=== PATIENT | male | born 1985 | race Caucasian/White ===

== ENCOUNTER 2020-04-24 19:22 | Emergency (ER) | payer OTHER, SELFPAY ==
--- NOTE | ~2020-04-24 | CT_ITS ---
EXAMINATION: CT abdomen pelvis wo con DATE: 04/24/2020 19:55 INDICATION: Right flank pain TECHNIQUE: Computed tomography (CT) of the abdomen and pelvis was performed without intravenous contr ast. The dose-length product (DLP) was 1264.60 mGy-cm. Automated exposure control and iterative recon struction technique were employed. COMPARISON: None FINDINGS: The lung bases are clear. The heart size is normal. The liver, spleen, pancreas, gallbladde r, and adrenal glands are normal. Nonobstructing stones of the left kidney measure up to 2 mm. There are at least five right kidney stones which measure up to 7 mm. No stones are identified in the urete rs or bladder. There is no hydronephrosis or hydroureter. No pathologically enlarged abdominal or pel rupal lymph nodes are identified. There is no free intraperitoneal gas or evidence of bowel obstruction . The appendix is normal. There is mild lumbar spondylosis. There is a small fat-containing umbilical hernia. IMPRESSION: 1. Bilateral nonobstructing nephrolithiasis. No stones in the ureters or bladder. No hydronephrosis o r hydroureter. Reviewed, dictated and finalized at location A. [employer] IMPRESSION: 1. Bilateral nonobstructing nephrolithiasis. No stones in the ureters or bladde r. No hydronephrosis or hydroureter.
[2020-04-24 19:31] VITALS: BP 144/83; PULSE 84; RESP 18; TEMP 36.7; O2SAT 95
[2020-04-24] MEDS: HYDROmorphone HCL INJ (*CRX) 1 MG/ML SYR 0.5 MG IV PUSH (19:50)
[2020-04-24 19:52] LABS: Basophils Percent Auto 0.5 % (0.2-1.2); Eosinophils Absolute Auto 0.2 K/mm3 (0-0.3); Eosinophils Percent Auto 2.8 % (0-4.4); Hematocrit 42.9 % (42.0-52.0); Hemoglobin 14.1 g/dL (14.0-18.0); Immature Granulocyte Absolute 0.01 K/mm3 (0.00-0.031); Immature Granulocyte Percent A 0.2 % (0-0.5); Lymphocytes Absolute Auto 2.92 K/mm3 (0.9-3.2); Lymphocytes Percent Auto 48.7 % (18.3-44.2); Mean Corpuscular HGB Conc 32.9 g/dl (32-36); Mean Corpuscular Volume 85.1 fl (80-100); Mean Platelet Volume 10.3 fl (7.4-10.4); Monocytes Absolute Auto 0.4 K/mm3 (0.1-0.6); Monocytes Percent Auto 6.5 % (2.6-8.5); Neutrophils Absolute Auto 2.5 K/mm3 (1.3-6.7); Neutrophils Percent Auto 41.3 % (45.5-73.1); Platelet Count Result 192 k/mm3 (150-375); Red Blood Count 5.04 M/mm3 (4.6-6.20); Red Cell Distribution Width 13.6 % (11.5-14.5)
--- NOTE | 2020-04-24 19:55 | ED.GENADULT ---
HPI - General Adult General Chief complaint: Back Pain/Injury Stated complaint: R Calf pain, Kidney stone Time Seen by Provider: 04/24/20 19:28 Source: patient Mode of arrival: ambulatory Limitations: no limitations History of Present Illness HPI narrative: Patient presents with chief complaint of right flank pain that is radiating into his groin over the past 6 hours. Patient states he has not had some bloody discoloration to his urine. Patient reports that he has had a kidney stone a month ago. He states that he has been treated for hyperparathyroidism but he still suffers from frequent kidney stones. Patient denies fever, chills, vomiting, diarrhea, chest pain or shortness of breath. Patient also reports that over the past month he has had some irritation to the more distal portion of his right posterior leg. Patient does not have any pain in the calf or thigh. Related Data Allergies Allergy/AdvReac Type Severity Reaction Status Date / Time morphine Allergy Other Verified 04/24/20 19:25 Review of Systems Review of Systems: Narrative: CONSTITUTIONAL: Denies fever, chills, or sweats. EYES: Denies visual changes, redness, or discharge. ENT: Denies rhinorrhea, congestion, sore throat, or otalgia. CARDIOVASCULAR: Denies chest pain, palpitations, or edema. RESPIRATORY: Denies cough or dyspnea. GASTROINTESTINAL: Reports right flank pain Denies abdominal pain, vomiting, or diarrhea. GENITOURINARY: Denies dysuria or hematuria. SKIN: Denies rash or itching. MUSCULOSKELETAL: right achilles pain Denies back pain, joint pain, or myalgia. NEUROLOGIC: Denies headache, numbness, dizziness, or weakness. PSYCHIATRIC: Denies anxiety or depression. Exam Narrative: Exam Narrative: GENERAL: Well-nourished.Appears uncomfortable. HEAD: Normocephalic, atraumatic. EYES: PERRLA and EOMI. NECK: Supple. No adenopathy or masses. No vertebral tenderness or loss of ROM. CHEST: Clear to auscultation. No respiratory distress. No wheezes rales or rhonchi HEART: Regular rate and rhythm. Normal peripheral pulses. ABDOMEN: Right CVA tenderness. Soft, tender to right lower abdomen. nondistended, normal active bowel sounds. No bruises noted. EXTREMITIES: No right calf pain or thigh pain. tenderness with palpation of right achilles- no drop foot. No edema. SKIN: Warm, dry, no rash. NEURO: No focal deficits. Alert and oriented x3. PSYCH: Normal mood and affect. Course Vital Signs Vital signs: Vital Signs Temperature 98.1 F 04/24/20 19:31 Pulse Rate 84 04/24/20 19:31 Respiratory Rate 18 04/24/20 19:31 Blood Pressure 144/83 H 04/24/20 19:31 Pulse Oximetry 95 04/24/20 19:31 Temperature 98.1 F 04/24/20 19:31 Pulse Rate 84 04/24/20 19:31 Respiratory Rate 18 04/24/20 19:31 Blood Pressure 144/83 H 04/24/20 19:31 Pulse Oximetry 95 04/24/20 19:31 Medical Decision Making MDM Narrative Medical decision making narrative: Patient states he will be receiving a ride home. CT is negative for acute findings. Patient has no stones in his ureters or bladder. There is no signs of hydronephrosis or hydroureter. There is some delay in his urine. Patient instructed to follow-up with his urologist. Patient will be discharged home with cyclobenzaprine and naproxen for discomfort. Patient is instructed to follow-up with his urologist or from investigation into his symptoms. Vital Signs Vital Signs: Vital Signs Temperature 98.1 F 04/24/20 19:31 Pulse Rate 84 04/24/20 19:31 Respiratory Rate 18 04/24/20 19:31 Blood Pressure 144/83 H 04/24/20 19:31 Pulse Oximetry 95 04/24/20 19:31 Temperature 98.1 F 04/24/20 19:31 Pulse Rate 84 04/24/20 19:31 Respiratory Rate 18 04/24/20 19:31 Blood Pressure 144/83 H 04/24/20 19:31 Pulse Oximetry 95 04/24/20 19:31 Lab Data Result diagrams: 04/24/20 19:41 04/24/20 19:41 Labs: Lab Results 04/24/20 04/24/20 04/24/20 Range/Units
[2020-04-24 19:58] LABS: Add Urine Microscopic? YES; Appearance Urine Clear (Clear); Bilirubin Urine Negative (Negative); Blood Urine 3+ (Negative); Color Urine Straw (Yellow); Glucose Urine UA Negative (Negative); Ketones Urine Negative (Negative); Leukocyte Esterase Ur Negative LEU/UL (Negative); Mucus Urine Rare /lpf; Nitrate Urine Negative (Negative); Protein Urine 1+ mg/dL (Negative); RBC Urine >75 /hpf (0-2); Specific Grav Ur 1.027 (1.001-1.035); Urobilinogen Urine Negative mg/dL (<2.0); WBC Urine 0-3 /hpf
[2020-04-24 20:09] LABS: Anion Gap 10 mmol/L (8-16); Blood Urea Nitrogen 22 mg/dL (9-20); Calcium 8.2 mg/dL (8.4-10.2); Carbon Dioxide 24 mmol/L (22-30); Chloride 106 mmol/L (98-107); Estimated CRCL calculation 104 ml/min; Estimated Glomerular Filt Rate > 60; Glucose 104 mg/dL (75-110); Potassium 4.2 mmol/L (3.4-5.0); Sodium 140 mmol/L (137-145)
[2020-04-24] MEDS: SODIUM CHLORIDE 0.9% IV 1,000 ML 999 ML IV CONT (20:49)
[2020-04-24] MEDS: KETOROLAC 15 MG/ML VIAL (*BKC) IV PUSH (20:49)
[2020-04-24 21:51] VITALS: BP 135/75; PULSE 78; RESP 18; O2SAT 99
== END 2020-04-24 21:52 | disposition home or self-care (01) ==
PROVIDERS: Emergency Provider Emergency Medicine
DX: R31.9 Hematuria, unspecified (principal); M76.61 Achilles tendinitis, right leg
CPT/HCPCS: 36415; 74176; 80048; 81001; 85025; 96361; 96374; 96375; 99284; J1170; J1885; J7030

== ENCOUNTER 2021-08-07 17:01 | Emergency (ER) | payer OTHER, SELFPAY ==
--- NOTE | 2021-08-07 17:20 | ED.SOB ---
HPI - SOB/Dyspnea General Chief Complaint: Upper Respiratory Infection Stated Complaint: bodyache,sorethroat,cough Time Seen by Provider: 08/07/21 17:08 Source: patient Mode of arrival: ambulatory Limitations: no limitations History of Present Illness HPI Narrative: Mr. Oshea is a 35-year-old male patient presenting to the clinic today with complaints of midsternal chest pain, shortness of breath, cough, body aches, fever and dizziness. Her symptoms began approximately 18 hours ago. States that his chest pain just started maybe an hour or so ago with worsening of shortness of breath. He has a history of a PE approximately 5 years ago. He is not currently taking any anticoagulants. Rates pain a 7 out of 10 to the center of his chest that worsens when he coughs. He reports he took an at home Covid test and it was positive today. Is wanting to be seen for antiviral treatment. MD elicited complaint: shortness of breath, cough and chest pain Related Data Allergies Allergy/AdvReac Type Severity Reaction Status Date / Time morphine Allergy Other Verified 04/24/20 19:25 Review of Systems Review of Systems: Pertinent positives per HPI. Patient denies any rash, visual changes, dizziness, cough, runny nose, sore throat, shortness of breath, chest pain, palpitations, nausea, vomiting, diarrhea, constipation, abdominal pain, or any urinary issues. PMFSH Comments At the time of my signature, I reviewed and agree with the nursing past medical, surgical, social, and family history. There is no relevant family history pertinent to the patient complaint. Exam Narrative: General: Well-developed, obese, lethargic Head: Normocephalic, atraumatic Eyes: Pupils equally round and reactive to light bilaterally, EOM intact, sclera and conjunctive clear, no discharge, lids normal Ears: TMs intact and clear, ear canals clear, no drainage, grossly hearing normal. Nose: Nares patent, clear discharge, mild inflammation, no sinus tenderness. Mouth: Oropharynx without lesions or masses, good dentition, MMM. Neck: Supple, trachea midline, no enlargement of anterior or posterior cervical nodes, no thyroid masses or goiter palpable. Cardio: Regular rate and rhythm, s1 and s2 normal, no murmur appreciated. Resp: Clear to auscultation bilaterally anteriorly, no rhonchi, rales, wheezing or rubs. SPO2 97 to 98% on room air Course Course Emergency Course: Portions of this record may have been created with voice recognition software. Level of Care: Express Care Visit Vital Signs Vital signs: Vital signs reviewed Transfer Transfered to: [facility]: [facility] Transfer rationale: Covid positive-reports shortness of breath and midsternal chest pain a 7 out of 10 -rule out acute coronary syndrome, SARS, or PE Accepting physician: Dr. Marco Barton Transfer comments: Patient transferred via ALS to [facility] MDM - SOB/Dyspnea MDM Narrative Medical decision making narrative: At the time of assessment in the triage room patient is lethargic, increased work of breathing, reporting midsternal chest pain a 7 out of 10 that sharp. Reports that this pain is just like the pain he had when he had his pulmonary embolism 5 years ago. Covid testing was positive at home. Symptoms started approximately 18 hours ago. Patient had near syncopal episode when standing up to go from triage to an exam room. Patient was then transported to [facility] room 1 and EKG was obtained. EKG showed sinus rhythm with a heart rate of 93 bpm without ectopy. Patient diaphoretic, lethargic, and is having increased work to breathe. EMS was notified and risk and benefits were explained to patient regarding transfer to emergency room. Patient agreed to be transferred to the emergency room. Dr. Marco Barton at [facility] accepted the patient. Differential Diagnosis Differential diagnosis: Likely other (Acute STEMI, acute coronary syndrome, sepsis, SARS/Covid, pulmonary embolism) ECG Data E
[2021-08-07 17:22] VITALS: BP 145/95; PULSE 97; RESP 18; TEMP 37.1; O2SAT 98
--- NOTE | 2021-08-07 17:26 | PC.NURSE ---
EKG completed report called to Clare BOND at [facility]
--- NOTE | 2021-08-07 17:29 | PC.NURSE ---
Report to [facility] care transfered
--- NOTE | 2021-08-07 17:34 | ECG_ITS ---
Measurements Intervals [place] Rate: 93 P: 48 IL: 164 QRS: 27 QRSD: 84 T: 44 QT: 334 QTc: 415 Interpretive Statements SINUS RHYTHM NORMAL ECG NO PREVIOUS ECG AVAILABLE FOR COMPARISON Electronically Signed On 08-08-2021 15:35:39 CDT by Alexis Butcher M.D.
== END 2021-08-07 17:37 | disposition short-term general hospital (02) ==
PROVIDERS: Emergency Provider Nurse Practitioner Family
DX: U07.1 COVID-19 (principal); R06.02 Shortness of breath; R07.9 Chest pain, unspecified; E05.90 Thyrotoxicosis, unspecified without thyrotoxic crisis or storm
CPT/HCPCS: 87426; 93005; 99215; C9803; G0463

== ENCOUNTER 2021-08-07 17:49 | Emergency (ER) | payer OTHER, SELFPAY ==
--- NOTE | ~2021-08-07 | XR_ITS ---
XR chest 1V portable DATE: 08/07/2021 18:02 INDICATION: Chest pain, shortness of breath, lethargy TECHNIQUE: Portable AP chest on 08/07/2021 at 29 hours COMPARISON: None FINDINGS: Heart size appears normal. Mild infiltrate or atelectasis is suggested in the lower lung zones; otherwise no pulmonary infiltrat e or consolidation, pleural effusion or pulmonary vascular congestion or pneumothorax is detected IMPRESSION: Suggestion of mild infiltrate or atelectasis in the lower lung zones Reviewed, dictated and finalized at location A. IMPRESSION: Suggestion of mild infiltrate or atelectasis in the lower lung zone s
--- NOTE | ~2021-08-07 | CT_ITS ---
EXAMINATION: CTA chest PE protocol DATE: 08/07/2021 19:29 INDICATION: Chest pain. History of pulmonary embolism TECHNIQUE: Computed tomography angiography (CTA) of the chest was performed with 100 mL Omnipaque-350 intravenous contrast timed to evaluate the pulmonary arteries. Coronal maximum intensity projection 3D-reconstructions were created by the technologist. Automated exposure control and iterative reconst ruction technique were employed. Exam dose: 821.00 mGy-cm total exam DLP. COMPARISON: August 07, 2021 portable AP chest FINDINGS: There is minimal primarily dependent atelectasis in the lower lobes and to a lesser extent upper lobes. There is diagnostic contrast enhancement of the pulmonary arteries and no evidence of pulmonary embol ism. No thoracic aortic aneurysm or dissection. No hilar or mediastinal mass lesion or lymphadenopathy. Normal heart size. No pericardial or pleural effusion. No suspicious osteolytic or osteoblastic lesions. IMPRESSION: No evidence of pulmonary embolism Reviewed, dictated and finalized at Location A. Reviewed, dictated and finalized at location A.
[2021-08-07 17:53] VITALS: BP 127/84; PULSE 98; RESP 18; TEMP 36.9; O2SAT 98
--- NOTE | 2021-08-07 18:05 | ED.SOB ---
HPI - SOB/Dyspnea General Chief Complaint: Shortness of Breath/Dyspnea <Alexis Barton APRN - Last Filed: 08/07/21 18:09> Stated Complaint: COVID + SOB CP <Alexis Barton APRN - Last Filed: 08/07/21 18:09> Time Seen by Provider: 08/07/21 17:52 <Alexis Barton APRN - Last Filed: 08/07/21 18:09> History of Present Illness HPI Narrative: 35-year-old male presents the emergency room from [facility] for further evaluation of shortness of breath and chest pain. Patient states today he developed sharp, stabbing midsternal chest pain that worsens with inspiration. Patient also reports on productive cough patient tested positive for Covid this morning. Patient also reports fever this morning. Patient has a history of a PE 5 years ago states he completed a course of Eliquis over 6 months. <Alexis Barton APRN - Last Filed: 08/07/21 18:09> Related Data Home Medications: Home Medications Medication Instructions Recorded Confirmed bupropion HCl 150 mg PO QAM 08/07/21 fluoxetine 20 mg PO DAILY 08/07/21 <Alexis Barton APRN - Last Filed: 08/07/21 18:09> Allergies/Adverse Reactions: Allergies Allergy/AdvReac Type Severity Reaction Status Date / Time No Known Allergies Allergy Verified 08/07/21 18:04 <Alexis Barton APRN - Last Filed: 08/07/21 18:09> Review of Systems Review of Systems: CONSTITUTIONAL: Denies fever, chills, or sweats. EYES: Denies visual changes, redness, or discharge. ENT: Denies rhinorrhea, congestion, sore throat, or otalgia. CARDIOVASCULAR: Denies chest pain, palpitations, or edema. RESPIRATORY: Reports dyspnea GASTROINTESTINAL: Denies abdominal pain, nausea, vomiting, or diarrhea. GENITOURINARY: Denies dysuria or hematuria. SKIN: Denies rash or itching. MUSCULOSKELETAL: Denies back pain, joint pain, or myalgia. NEUROLOGIC: Denies headache, numbness, dizziness, or weakness. PSYCHIATRIC: Denies anxiety or depression. <Alexis Barton APRN - Last Filed: 08/07/21 18:09> Exam Narrative: GENERAL: Well-appearing, well-nourished, and in moderate acute distress HEAD: Normocephalic, atraumatic. EYES: PERRLA and EOMI. CHEST: Clear to auscultation. No respiratory distress. No wheezes rales or rhonchi HEART: Regular rate and rhythm. No murmur heard. Normal peripheral pulses. ABDOMEN: Soft, nontender, nondistended, normal active bowel sounds. EXTREMITIES: Normal range of motion. No edema. SKIN: Warm, dry, no rash. NEURO: No focal deficits. Alert and oriented x3. PSYCH: Normal mood and affect. <Alexis Barton APRN - Last Filed: 08/07/21 18:09> Course Vital Signs Vital signs: Vital Signs Temperature 98.4 F 08/07/21 17:53 Pulse Rate 98 08/07/21 17:53 Respiratory Rate 18 08/07/21 17:53 Blood Pressure 127/84 08/07/21 17:53 Pulse Oximetry 98 08/07/21 17:53 Temperature 98.4 F 08/07/21 17:53 Pulse Rate 83 08/07/21 20:54 Respiratory Rate 18 08/07/21 20:54 Blood Pressure 146/82 H 08/07/21 20:54 Pulse Oximetry 100 08/07/21 20:54 <Alexis Barton APRN - Last Filed: 08/07/21 18:09> Vital Signs Temperature 98.4 F 08/07/21 17:53 Pulse Rate 98 08/07/21 17:53 Respiratory Rate 18 08/07/21 17:53 Blood Pressure 127/84 08/07/21 17:53 Pulse Oximetry 98 08/07/21 17:53 Temperature 98.4 F 08/07/21 17:53 Pulse Rate 83 08/07/21 20:54 Respiratory Rate 18 08/07/21 20:54 Blood Pressure 146/82 H 08/07/21 20:54 Pulse Oximetry 100 08/07/21 20:54 <Adrienne Wise PA-C - Last Filed: 08/07/21 21:28> MDM - SOB/Dyspnea MDM Narrative Medical decision making narrative: Patient signed out to me at shift change. Vital signs stable. No hypoxia. Laboratory evaluation unremarkable. No electrolyte abnormality. Troponin negative. EKG without acute changes. Chest x-ray showing mild infiltrate or atelectasis in lower lungs. CTA chest negative for pulmonary embolism. Shows minim
[2021-08-07 18:47] VITALS: PULSE 90
[2021-08-07] MEDS: SODIUM CHLORIDE 0.9% IV 1,000 ML 999 ML IV CONT (18:48)
--- NOTE | 2021-08-07 18:54 | ECG_ITS ---
Measurements Intervals [place] Rate: 93 P: 52 ID: [id number] QRS: 9 QRSD: 90 T: 30 QT: 342 QTc: 425 Interpretive Statements SINUS RHYTHM NORMAL ECG COMPARED TO ECG 08/07/2021 17:27:38 NO SIGNIFICANT CHANGES Electronically Signed On 08-08-2021 15:39:47 CDT by Alexis Butcher M.D.
[2021-08-07 18:58] LABS: Basophils Percent Auto 0.1 % (0.2-1.2); Eosinophils Absolute Auto 0.1 K/mm3 (0-0.3); Eosinophils Percent Auto 1.5 % (0-4.4); Hematocrit 42.1 % (42.0-52.0); Hemoglobin 13.4 g/dL (14.0-18.0); Immature Granulocyte Absolute 0.03 K/mm3 (0.00-0.031); Immature Granulocyte Percent A 0.4 % (0-0.5); Lymphocytes Absolute Auto 1.17 K/mm3 (0.9-3.2); Mean Corpuscular HGB Conc 31.8 g/dl (32-36); Mean Corpuscular Hemoglobin 27.9 pg (26-34); Mean Corpuscular Volume 87.5 fl (80-100); Mean Platelet Volume 10.7 fl (7.4-10.4); Monocytes Absolute Auto 0.7 K/mm3 (0.1-0.6); Monocytes Percent Auto 10.8 % (2.6-8.5); Neutrophils Absolute Auto 4.8 K/mm3 (1.3-6.7); Neutrophils Percent Auto 70.2 % (45.5-73.1); Platelet Count Result 166 k/mm3 (150-375); Red Blood Count 4.81 M/mm3 (4.6-6.20); Red Cell Distribution Width 13.6 % (11.5-14.5); White Blood Count 6.9 K/mm3 (4.5-10.0)
[2021-08-07 18:59] LABS: Alanine Aminotransferase 37 U/L (4-50); Albumin Level 4.4 g/dL (3.5-5.1); Alkaline Phosphatase 84 U/L (38-126); Anion Gap 8 mmol/L (8-16); Aspartate Amino Transferase 30 U/L (17-59); Bilirubin,Total 0.5 mg/dL (0.2-1.3); Blood Urea Nitrogen 16 mg/dL (9-20); Carbon Dioxide 26 mmol/L (22-30); Chloride 103 mmol/L (98-107); Estimated CRCL calculation 115 ml/min; Estimated Glomerular Filt Rate > 60; Glucose 94 mg/dL (65-110); Sodium 137 mmol/L (137-145)
[2021-08-07 19:10] VITALS: O2SAT 100
--- NOTE | 2021-08-07 19:10 | PC.NURSE ---
Assuming care of pt.
[2021-08-07 19:11] LABS: Troponin I < 0.012 ng/mL (0.000-0.034)
[2021-08-07 19:27] LABS: SARS-CoV-2 RNA PCR Positive
[2021-08-07] MEDS: KETOROLAC 30 MG/ML VIAL (*BKC) IV PUSH (20:51)
[2021-08-07 20:54] VITALS: BP 146/82; PULSE 83; RESP 18; O2SAT 100
== END 2021-08-07 21:57 | disposition home or self-care (01) ==
PROVIDERS: Family Medicine; Emergency Provider Nurse Practitioner Family
DX: U07.1 COVID-19 (principal); R07.89 Other chest pain
CPT/HCPCS: 36415; 71045; 71275; 80053; 84484; 85025; 93005; 96361; 96365; 96375; 99284; C9803; J0131; J1885; J7030; Q9967; U0003; U0005

== ENCOUNTER 2022-09-14 16:45 | Emergency (ER) | payer OTHER, SELFPAY ==
--- NOTE | ~2022-09-14 | CT_ITS ---
IMPRESSION: No acute abdominopelvic process detected EXAMINATION: CT abdomen pelvis wo con DATE: 09/14/2022 17:11 INDICATION: right flank pain TECHNIQUE: Computed tomography (CT) of the abdomen and pelvis was performed without intravenous contr ast. Automated exposure control and iterative reconstruction technique were employed. The dose-length product was 342.82 mGy-cm. COMPARISON: 04/24/2020. FINDINGS: Lower thorax: Gynecomastia. Liver: Normal. Biliary/Gallbladder: Gallbladder is absent. No bile duct dilation. Pancreas: No mass or duct dilation. Spleen: Normal. Adrenals:No mass. Kidneys: 4 mm nonobstructing left inferior pole calcification. Punctate right midpole nonobstructing calculi. No suspicious mass, obstructing stone, or hydronephrosis. GI tract: No small or large bowel dilation. Normal appendix. Mesentery/Peritoneum: No ascites, mass, or free air. Retroperitoneum: No mass. Pelvis: Pelvic organs are within normal limits. Soft Tissues: Soft tissues and body wall unremarkable. Small uncomplicated fat-containing umbilical h ernia. Bones: No acute osseous finding. IMPRESSION: No acute abdominopelvic process detected Reviewed, dictated and finalized at location K.
[2022-09-14 16:51] VITALS: BP 132/85; PULSE 80; RESP 17; TEMP 36.6; O2SAT 99
[2022-09-14 17:29] LABS: Basophils Percent Auto 0.4 % (0.2-1.2); Eosinophils Absolute Auto 0.2 K/mm3 (0-0.3); Hematocrit 43.2 % (42.0-52.0); Hemoglobin 13.7 g/dL (14.0-18.0); Immature Granulocyte Absolute 0.01 K/mm3 (0.00-0.031); Immature Granulocyte Percent A 0.1 % (0-0.5); Lymphocytes Absolute Auto 1.04 K/mm3 (0.9-3.2); Lymphocytes Percent Auto 14.1 % (18.3-44.2); Mean Corpuscular HGB Conc 31.7 g/dl (32-36); Mean Corpuscular Hemoglobin 27.5 pg (26-34); Mean Corpuscular Volume 86.7 fl (80-100); Mean Platelet Volume 10.3 fl (7.4-10.4); Monocytes Absolute Auto 0.4 K/mm3 (0.1-0.6); Neutrophils Absolute Auto 5.8 K/mm3 (1.3-6.7); Neutrophils Percent Auto 78.4 % (45.5-73.1); Platelet Count Result 180 k/mm3 (150-375); Red Blood Count 4.98 M/mm3 (4.6-6.20); Red Cell Distribution Width 13.8 % (11.5-14.5); White Blood Count 7.4 K/mm3 (4.5-10.0)
[2022-09-14] MEDS: SODIUM CHLORIDE 0.9% IV 1,000 ML 999 ML IV CONT (17:35)
[2022-09-14 17:36] LABS: Appearance Urine Cloudy (Clear); Bacteria Urine None Seen /hpf; Bilirubin Urine Negative (Negative); Blood Urine Negative (Negative); Color Urine Yellow (Yellow); Glucose Urine UA Negative (Negative); Ketones Urine Negative (Negative); Leukocyte Esterase Ur Negative LEU/UL (Negative); Nitrate Urine Negative (Negative); Non Pathogenic Casts 0-2; Protein Urine Trace mg/dL (Negative); RBC Urine 0-2 /hpf (0-2); Specific Grav Ur 1.028 (1.001-1.035); Squamous Epithelial Cell Urine None seen /hpf (Few); WBC Urine 0-5 /hpf
[2022-09-14 17:38] LABS: Add Urine Microscopic? NO
[2022-09-14] MEDS: KETOROLAC 30 MG/ML VIAL (*BKC) IV PUSH (17:40)
[2022-09-14 17:46] LABS: Ethanol < 10 mg/dL (<10)
[2022-09-14 17:47] LABS: Alanine Aminotransferase 40 U/L (6-50); Alkaline Phosphatase 73 U/L (38-126); Anion Gap 8 mmol/L (8-16); Aspartate Amino Transferase 95 U/L (17-59); Bilirubin,Total 0.6 mg/dL (0.2-1.3); Blood Urea Nitrogen 16 mg/dL (9-20); Calcium 7.6 mg/dL (8.4-10.2); Carbon Dioxide 26 mmol/L (22-30); Chloride 104 mmol/L (98-107); Estimated CRCL calculation 102 ml/min; Estimated Glomerular Filt Rate > 60; Glucose 96 mg/dL (65-110); Potassium 4.6 mmol/L (3.4-5.0); Sodium 138 mmol/L (137-145)
[2022-09-14 18:13] LABS: Thyroid Stimulating Hormone 0.462 uIU/mL (0.465-4.680)
[2022-09-14 18:17] LABS: Barbiturate Screen Urine Negative (Negative); Benzodiazepines Screen Urine Negative (Negative)
[2022-09-14 18:18] LABS: Amphetamine Screen Urine Negative (Negative); Cannabinoid Screen Urine Positive (Negative); Cocaine Screen Urine Negative (Negative); Methadone Screen Urine Negative (Negative); Opiate Screen Urine Negative (Negative); Phencyclidine Screen Urine Negative (Negative)
--- NOTE | 2022-09-14 18:31 | ED.PSYCH ---
HPI - Psych General Chief Complaint: Psychiatric Symptoms <Maxim Stearns MD - Last Filed: 09/14/22 18:43> Stated Complaint: SI, brought in by PD after wellfare check <Maxim Stearns MD - Last Filed: 09/14/22 18:43> Time Seen by Provider: 09/14/22 16:49 <Maxim Stearns MD - Last Filed: 09/14/22 18:43> History of Present Illness HPI Narrative: Patient is a 37-year-old male who presents to the ER with concern for suicidal ideation. Patient was in an argument with his today and reports that she alluded to the fact that she wanted a divorce. He then wrote a letter saying that he was going to leave and that he was sorry. He put in the letter that she needed to remember where the life insurance policies were. He reports that [place] [address] [place] location and to end his life. He reports after drafting the letter he had a change of heart because he would not want to do this to his children as he is known people who have committed suicide in the past and he is seen with her family to go through. found the note and called police due to concern. Patient reports suicidal ideation only one other time in his life but it is while he was in [place]. He reports that he is treated for depression and has not been missing his medications. He is not under the influence of any intoxicants. He does report at this time he may be passing a kidney stone as he has had some flank pain over the last day. He endorses urinary frequency. No blood in his urine. <Maxim Stearns MD - Last Filed: 09/14/22 18:43> Related Data Home Medications: Home Medications Medication Instructions Recorded Confirmed bupropion HCl 300 mg 24 hr tablet, 300 mg PO QAM 09/15/22 09/15/22 extended release fluoxetine 10 mg capsule 10 mg PO DAILY 09/15/22 09/15/22 <Maxim Stearns MD - Last Filed: 09/14/22 18:43> Allergies/Adverse Reactions: Allergies Allergy/AdvReac Type Severity Reaction Status Date / Time morphine Allergy Hives Verified 09/15/22 09:11 <Maxim Stearns MD - Last Filed: 09/14/22 18:43> Review of Systems Review of Systems: All systems reviewed & are unremarkable except as noted in HPI and below <Maxim Stearns MD - Last Filed: 09/14/22 18:43> Constitutional: Constitutional: Denies chills, Denies fatigue and Denies fever(s) <Maxim Stearns MD - Last Filed: 09/14/22 18:43> ENT: Denies nasal congestion and Denies sore throat <Maxim Stearns MD - Last Filed: 09/14/22 18:43> Cardiovascular: Cardiovascular: Denies chest pain, Denies radiating jaw, neck or arm pain and Denies slow heart rate <Maxim Stearns MD - Last Filed: 09/14/22 18:43> Respiratory: Respiratory: Denies cough and Denies dyspnea <Maxim Stearns MD - Last Filed: 09/14/22 18:43> Gastrointestinal: Gastrointestinal: Reports abdominal pain, Denies nausea and Denies vomiting <Maxim Stearns MD - Last Filed: 09/14/22 18:43> Genitourinary: Genitourinary: Denies hematuria, Denies dysuria and Reports urinary frequency <Maxim Stearns MD - Last Filed: 09/14/22 18:43> Psychiatric: Psychiatric: Reports depression, Denies homicidal ideation and Reports suicidal ideation <Maxim Stearns MD - Last Filed: 09/14/22 18:43> PMFSH Past Medical History Medical History: Medical History (Updated 09/15/22 @ 15:21 by Kodak Espino MD) Depression Kidney stones <Maxim Stearns MD - Last Filed: 09/14/22 18:43> Surgical History Surgical History: Surgical History (Updated 09/14/22 @ 18:36 by Maxim Stearns MD) History of lithotripsy <Maxim Stearns MD - Last Filed: 09/14/22 18:43> Social History Social History: Social History Substance use type: marijuana <Maxim Stearns MD - Last Filed: 09/14/22 18:43> Exam Narrative: GENERAL: Well-appearing, well-nourished, and i
--- NOTE | 2022-09-14 18:52 | PC.NURSE ---
Crisis contacted and request COVID swab
[2022-09-14 19:35] VITALS: BP 130/87; PULSE 76; RESP 14; TEMP 36.6; O2SAT 100
[2022-09-14 19:40] LABS: Influenza A QL RT-PCR Negative (Negative); Influenza B QL RT-PCR Negative (Negative); SARS-CoV-2 RNA PCR Negative (Negative)
--- NOTE | 2022-09-14 20:49 | PC.NURSE ---
Patient states is pain became 6/10 and increasing in his groin area. Notified Dr. Sierra who advised to give patient a [place] PO.
[2022-09-14] MEDS: HYDROcodone/acetaminophen (*CRX) 5-325 MG TABLET 1 TAB PO (20:56)
--- NOTE | 2022-09-14 21:36 | PC.NURSE ---
DIOMEDES, INTAKE AT [facility], CALLED. THEY ARE NOT ACCEPTING THIS PATIENT.
--- NOTE | 2022-09-14 21:50 | PC.NURSE ---
Patient had family members on the phone asking for an update. Per patient he does not wish to update family members.
--- NOTE | 2022-09-14 22:31 | PC.NURSE ---
Guillermo from [facility] called for an update and requested a chart faxed over.
--- NOTE | 2022-09-15 00:12 | PC.NURSE ---
Guillermo from [facility] called and advised that their provider thinks this patient would benefit more from outpatient services, however if the patient does not have placement by tomorrow morning we can call back and see if they have a bed.
--- NOTE | 2022-09-15 06:46 | PC.NURSE ---
Sitter pulled due to patient being low risk
[2022-09-15 08:25] VITALS: BP 122/78; PULSE 66; RESP 18; TEMP 36.7; O2SAT 97
--- NOTE | 2022-09-15 09:04 | PC.NURSE ---
Nicole ortiz Hancock called and asked for an update and states she will continue looking for placement
--- NOTE | 2022-09-15 09:24 | PC.NURSE ---
RN Spoke with Diana BOND from [place] to give her nurse to nurse report. Diana states that they currently don't have a bed available but she will update the provider in [place]. Diana was updated on pts most recent vitals as well as medical history and will be giving me a call with any updates that she has available.
[2022-09-15] MEDS: buPROPion HCL XL (24 HR) 150 MG TABCR 300 MG PO (09:55)
[2022-09-15] MEDS: FLUoxetine HCL 10 MG CAPSULE PO (09:55)
--- NOTE | 2022-09-15 10:15 | PC.NURSE ---
Spoke with Diana from [facility] and she states that they have a bed available for the pt but he will be admitted once he passes the kidney stone. A good number to reach Diana on is [phone].
[2022-09-15 11:00] VITALS: BP 136/82; PULSE 72; RESP 18; O2SAT 99
[2022-09-15] MEDS: ONDANSETRON HCL ODT 4 MG TABLET PO (11:29)
[2022-09-15] MEDS: PANTOPRAZOLE 40 MG TABLET PO (11:30)
--- NOTE | 2022-09-15 11:32 | PC.NURSE ---
Pt not wanting to be admitted. Pt asking to speak with crisis or the Dr. Kelley informed Dr. Flores and he states he will go speak with pt
--- NOTE | 2022-09-15 12:23 | PC.NURSE ---
Spoke with Nicole from [place] and she stated that [facility] will not take the pt until he passes the kidney stone but she would like for us to fax the pts facesheet to [facility] fax: [phone]. Nicole is also wanting us to fax the entire chart to [facility] as well and the fax: [phone]
--- NOTE | 2022-09-15 12:51 | PC.NURSE ---
This RN informed by Alisa that Dr. Flores went and spoke with patient and he will send him home on a safety contract. Contacting Manisha from [facility] to come out and fill out contract
[2022-09-15 15:39] VITALS: BP 147/89; PULSE 85; RESP 15; O2SAT 100
== END 2022-09-15 15:41 ==
PROVIDERS: Emergency Provider Emergency Medicine
DX: F32.A Depression, unspecified (principal); Z20.822 Contact with and (suspected) exposure to COVID-19
CPT/HCPCS: 36415; 74176; 80053; 80307; 81003; 84443; 85025; 87636; 96361; 96374; 99285; A9270; J1885; J7030

== ENCOUNTER 2023-05-29 10:14 | Emergency (ER) | payer OTHER, SELFPAY ==
[2023-05-29 10:20] VITALS: BP 136/88; PULSE 85; RESP 16; TEMP 36.9; O2SAT 100
--- NOTE | 2023-05-29 10:40 | ED.GENADULT ---
HPI - General Adult General Chief complaint: Dental/Oral Stated complaint: Sore Throat Time Seen by Provider: 05/29/23 10:38 History of Present Illness HPI narrative: 37-year-old male presented for complaint of persistent sore throat for over 1 month. He states he was treated for strep without a positive test. Completed the course of amoxicillin but had minimal improvement in the throat pain. Endorses painful swallow and swollen lymph nodes. He states over the past few days the back of the tongue muscle has been sore. Denies difficulty swallowing food or regurgitation co abdominal pain, fevers or chills. Related Data Home Medications Medication Instructions Recorded Confirmed No Home Medications 05/29/23 05/29/23 Allergies Allergy/AdvReac Type Severity Reaction Status Date / Time morphine Allergy Hives Verified 05/29/23 10:25 Review of Systems Review of Systems: CONSTITUTIONAL: Denies body aches, fever, chills, or sweats. EYES: Denies visual changes, redness, or discharge. ENT: reports throat pain Denies rhinorrhea, congestion, or otalgia. CARDIOVASCULAR: Denies chest pain, palpitations, or edema. RESPIRATORY: Denies dyspnea. GASTROINTESTINAL: Denies abdominal pain, nausea, vomiting, or diarrhea. SKIN: Denies rash, itching, or wounds. MUSCULOSKELETAL: Denies back pain, joint pain, or myalgia. NEUROLOGIC: Denies headache PMFSH Past Medical History Medical History Depression Kidney stones Surgical History Surgical History History of lithotripsy Social History Social History Substance use type: marijuana Exam Narrative: GENERAL: well-appearing, no acute distress. EYES: conjunctivae clear ENT: Mucous membranes moist. TMs pearly lyon with normal light reflex bilaterally; no tragal tenderness. Oropharynx not erythematous without lesions. Tonsils not enlarged and without exudate. No drooling, no hoarseness, no trismus, uvula midline. No tripod positioning, hot potato voice, or soft palate swelling. NECK: Supple. No lymphadenopathy, no induration below mandible no neck swelling CHEST: Clear to auscultation, breath sounds equal. No respiratory distress, speaks in full sentences. HEART: Regular rate and rhythm. No murmur heard. SKIN: Warm, dry, no rash. NEURO: Alert and oriented x3. Flat affect Course Course Emergency Course: Patient is aware of diagnosis, understands and agrees to treatment plan. Anticipatory guidance given. Patient agrees to follow-up as directed and is aware of reasons to seek care at the emergency department. Portions of this record may have been created with voice recognition software Level of Care: Express Care Visit Vital Signs Vital signs: Vital Signs Temperature 98.5 F 05/29/23 10:20 Pulse Rate 85 05/29/23 10:20 Respiratory Rate 16 05/29/23 10:20 Blood Pressure 136/88 05/29/23 10:20 Pulse Oximetry 100 05/29/23 10:20 Temperature 98.5 F 05/29/23 10:20 Pulse Rate 85 05/29/23 10:20 Respiratory Rate 16 05/29/23 10:20 Blood Pressure 136/88 05/29/23 10:20 Pulse Oximetry 100 05/29/23 10:20 Medical Decision Making MDM Narrative Medical decision making narrative: Results of strep and mono were reviewed with patient. Discussed physical exam findings. Advised supportive measures and signs/symptoms to go to the ER. Pt is appropriate for outpt treatment and f/u. Differential Diagnosis Differential Diagnosis: pharyngitis, gastritis, esophagitis, oral candidiasis, angioedema, epiglottitis, peritonsillar abscess, cellulitis, parotitis, vincent's angina Vital Signs Vital Signs: Vital Signs Temperature 98.5 F 05/29/23 10:20 Pulse Rate 85 05/29/23 10:20 Respiratory Rate 16 05/29/23 10:20 Blood Pressure 136/88 05/29/23 10:20 Pulse Oximetry 100
== END 2023-05-29 11:09 | disposition home or self-care (01) ==
PROVIDERS: Emergency Provider Nurse Practitioner Family
DX: R07.0 Pain in throat (principal); F12.90 Cannabis use, unspecified, uncomplicated
CPT/HCPCS: 36416; 86308; 87081; 87880; 99213; G0463

== ENCOUNTER 2023-10-04 10:37 | Emergency (ER) | payer OTHER, SELFPAY ==
[2023-10-04 10:49] VITALS: BP 138/88; PULSE 86; RESP 14; TEMP 36.8; O2SAT 100
--- NOTE | 2023-10-04 11:00 | ED.SKABFB ---
HPI - Skin/Abscess/Foreign Bdy General Chief complaint: Skin/Abscess/Foreign Body Stated complaint: Right ear/left thumb judy nail Source: patient Mode of arrival: ambulatory Limitations: no limitations History of Present Illness HPI narrative: 38-year-old male presented for complaint of right ear pain for about 4 days. Endorses pain with jaw movement and cannot tolerate opening his mouth fully. Denies clicking or popping. Endorses a history of TMJ problems on the left. Has been taking Tylenol nightly for chronic pain. Endorses chronic tinnitus. Denies ear drainage, dizziness, nausea, vomiting, fevers or chills. Related Data Allergies Allergy/AdvReac Type Severity Reaction Status Date / Time morphine AdvReac Mild Hives Verified 10/04/23 10:57 Review of Systems Review of Systems: CONSTITUTIONAL: Denies malaise, chills, or fever. EYES: Denies visual changes, redness, or discharge. ENT: Denies rhinorrhea, congestion, sinus pain, and sore throat. Reports ear pain CARDIOVASCULAR: Denies chest pain, palpitations, or edema. RESPIRATORY: Denies cough or dyspnea. GASTROINTESTINAL: Denies abdominal pain, nausea, vomiting, diarrhea SKIN: Denies rash or itching. MUSCULOSKELETAL: Denies myalgia. NEUROLOGIC: Denies headache. All systems reviewed & are unremarkable except as noted in HPI and below PMFSH Past Medical History Medical History (Updated 10/04/23 @ 11:19 by Sarah Vasquez APRN) Depression Kidney stones Pulmonary embolism Surgical History Surgical History (Updated 10/04/23 @ 11:19 by Sarah Vasquez APRN) H/O parathyroidectomy History of lithotripsy Social History Social History Substance use type: marijuana Comments At time of signature, agree with nursing past medical, surgical, social and family history. There is no relevant family history pertinent to the presenting complaint Exam Narrative: GENERAL: Well-appearing, well-nourished, and in no acute distress. HEAD: Normocephalic EYES: PERRLA, conjunctivae clear ENT: Nares clear. Mucous membranes moist. TMs pearly lyon with dull light reflex bilaterally; no tragal tenderness. Nontender TMJ. Oropharynx not erythematous without lesions. Tonsils not enlarged and without exudate, no drooling, no hoarseness, no trismus, uvula midline. NECK: Supple. No lymphadenopathy CHEST: Clear to auscultation, breath sounds equal. HEART: Regular rate and rhythm. No murmur heard. SKIN: Warm, dry, no rash. NEURO: Alert and oriented x3. PSYCH: Normal mood and affect Course Course Emergency Course: Patient is aware of diagnosis, understands and agrees to treatment plan. Anticipatory guidance given. Patient agrees to follow-up as directed and is aware of reasons to seek care at the emergency department. Portions of this record may have been created with voice recognition software Level of Care: Express Care Visit Vital Signs Vital signs: Vital Signs Temperature 98.2 F 10/04/23 10:49 Pulse Rate 86 10/04/23 10:49 Respiratory Rate 14 10/04/23 10:49 Blood Pressure 138/88 10/04/23 10:49 Pulse Oximetry 100 10/04/23 10:49 Oxygen Delivery Room Air 10/04/23 10:49 Temperature 98.2 F 10/04/23 10:49 Pulse Rate 86 10/04/23 10:49 Respiratory Rate 14 10/04/23 10:49 Blood Pressure 138/88 10/04/23 10:49 Pulse Oximetry 100 10/04/23 10:49 Oxygen Delivery Room Air 10/04/23 10:49 Reviewed MDM - Skin/Abscess/Foreign Bdy MDM Narrative Medical decision making narrative: tetanus updated for the recent finger injury from judy nail. Discussed physical exam findings, no apparent AOM. Will need to f/u with pcp. Advised supportive measures and signs/symptoms to go to the ER. Pt is appropriate for outpt treatment and f/u. Differential Diagnosis Differential diagnosis: Likely other (Otitis externa, TM rupture, cholesteatoma, foreign body, auricular perichondritisotitis media, bul
[2023-10-04] MEDS: TETANUS,DIPHTHERIA,AC PERTUSSIS ADULT (0.5 ML) BOOSTRIX IM (11:13)
== END 2023-10-04 11:17 | disposition home or self-care (01) ==
PROVIDERS: Emergency Provider Nurse Practitioner Family
DX: H92.01 Otalgia, right ear (principal); F12.90 Cannabis use, unspecified, uncomplicated
CPT/HCPCS: 90471; 90715; 99213; G0463

== ENCOUNTER 2024-06-06 11:25 | Emergency (ER) | payer OTHER, SELFPAY ==
--- NOTE | ~2024-06-06 | XR_ITS ---
EXAMINATION: XR chest 2V DATE: 06/06/2024 11:52 INDICATION: Cough and fever. TECHNIQUE: Frontal and lateral views of the chest were obtained. COMPARISON: Chest single view 08/07/2021 FINDINGS: There is no pneumonia, pleural effusion, or pneumothorax. The heart size is normal. Surgica l clips in the right upper quadrant are likely from cholecystectomy. IMPRESSION: 1. No acute cardiopulmonary disease. Reviewed, dictated and finalized at location A. [facility] [address]
--- NOTE | 2024-06-06 11:29 | ED_ITS ---
HPI - URI/Sore Throat General Chief Complaint: Upper Respiratory Infection Stated Complaint: Upper Respiratory Symptoms Source: patient and RN notes reviewed Mode of arrival: ambulatory Limitations: no limitations History of Present Illness HPI Narrative: Patient is a 38-year-old male who presents to the [facility] with multiple complaints. Patient states that he developed a fever and body aches on Wednesday. States that he also had increased fatigue. Patient also endorses frequent productive cough green sputum. Reports both nasal and chest congestion. Denies shortness of breath. Respirations are unlabored. Patient states that his son is sick with similar symptoms. Related Data Home Medications ?Medication ?Instructions ?Recorded ?Confirmed ?Last Taken ?Type bupropion HCl 300 mg 24 hr tablet, 300 mg PO DAILY 06/06/24 06/06/24 Unknown History extended release buspirone 5 mg tablet 5 mg PO BID 06/06/24 06/06/24 Unknown History methylphenidate HCl 36 mg 36 mg PO ONCE 06/06/24 06/06/24 Unknown History tablet,extended release 24 hr (Concerta) semaglutide (weight loss) 0.25 0.25 mg subcut WEEKLY 06/06/24 06/06/24 Unknown History mg/0.5 mL subcutaneous pen injector (Wegovy) Allergies Allergy/AdvReac Type Severity Reaction Status Date / Time duloxetine AdvReac Intermediate Gastrointestinal Verified 06/06/24 11:33 Upset morphine AdvReac Mild Hives Verified 06/06/24 11:33 Review of Systems Review of Systems: CONSTITUTIONAL: Reports fever and chills. EYES: Denies visual changes, redness, or discharge. ENT: Denies otalgia and sore throat. reports nasal congestion CARDIOVASCULAR: Denies chest pain, palpitations, or edema. RESPIRATORY: Reports cough but denies dyspnea. GASTROINTESTINAL: Denies abdominal pain, nausea, vomiting, or diarrhea. GENITOURINARY: Denies dysuria or hematuria. SKIN: Denies rash or itching. MUSCULOSKELETAL: Denies back pain, joint pain, but reports myalgia. NEUROLOGIC: Denies headache, numbness, or weakness. Pertinent positives per HPI. [facility] Past Medical History Medical History Pulmonary embolism Kidney stones Depression Surgical History Surgical History H/O parathyroidectomy History of lithotripsy Social History Social History Substance use type: marijuana Comments At the time of my signature, I reviewed and agree with the nursing past medical, surgical, social, and family history. There is no relevant family history pertinent to the patient complaint. Exam Narrative: GENERAL: This is a well-nourished, well-developed patient, in no apparent distress. HEAD: normocephalic, atraumatic. EYES: Sclera clear/white. Vision is grossly intact. EARS: External ears normal. Hearing grossly intact. NOSE: External nose normal with no obvious nasal discharge, nares without redness, no rhinorrhea. THROAT: Mucous membranes moist, posterior pharynx clear. NECK: Neck supple, non-tender without lymphadenopathy, masses or thyromegaly. CARDIOVASCULAR: Regular rate and rhythm without murmurs, gallops, or rubs. RESPIRATORY: Diffuse wheezes noted bilaterally. GASTROINTESTINAL: Abdomen soft, non-tender, nondistended. Bowel sounds are active. No hepato-splenomegaly, or palpable masses. No guarding. SKIN: warm, intact with no suspicious lesions or rash, good texture and turgor. NEURO: awake, alert, and oriented to person, place and time. There were no obvious focal neurologic abnormalities. Course Course Level of Care: Express Care Visit Vital Signs Vital signs: Vital Signs Temperature 98.1 F 06/06/24 11:43 Pulse Rate 77 06/06/24 11:43 Respiratory Rate 16 06/06/24 11:43 Blood Pressure 127/81 06/06/24 11:43 Pulse Oximetry 98 06/06/24 11:43 Temperature 98.1 F 06/06/24 11:43 Pulse Rate 77 06/06/24 11:43 Respiratory Rate 16 06/06/24 11:43 Blood Pressure 127/81 06/06/24 11:43 Pulse Oximetry 98 06/06/24 11:43 Reviewed MDM - URI/Sore Throat MDM Narrative Medical decision making narrative: Viral illness may last between 7-21 days; antibiotics do not cure viral illness and are NOT recommended at this time. Also, recommend symptomatic treatment includes: rest, fluids, and increase humi dity of the air at home. Recommend Acetaminophen as directed on the bottle to reduce fever, pain, headache. Please schedule a follow-up visit with your personal physician for further evaluation and treatment within 3-5days. If your symptoms persist, change or worsen significantly before you can contact your personal physician then please, without delay, go to the emergency department for further evaluation. Differential Diagnosis Differential diagnosis: Likely upper respiratory infection, viral infection, influenza, pharyngitis and other (covid, pneumonia) Lab Data Attestation: I reviewed the patient's lab results. Labs: Lab Results 06/06/24 Range/Units 11:54 POC Influenza A Ag Negative (Negative) POC Influenza B Ag Negative (Negative) POC SARS CoV-2 Ag Negative (Negative) Imaging Data Attestation: I personally reviewed and interpreted this imaging study as follows: Radiologist's impression: Close Chest X-Ray (Signed) Feliciano Hartman - 06/06/24 Launch?[facility] [place] [address] XRay Report Signed Patient: Casey Oshea : 1985 MR#: [id number] Age: 38 Acct:[id number] Loc: [id number] ADM Date: 06/06/24Attending Dr: Ordering Physician: Elif Silva APRN Date of Service: 06/06/24 Procedure(s): XR chest 2V Accession Number(s): [id number] cc: Elif Silva APRN; SENIOR PRODUCT DEVELOPMENT ENGINEER PHYSICIAN~ EXAMINATION: XR chest 2V DATE: 06/06/2024 11:52 INDICATION: Cough and fever. TECHNIQUE: Frontal and lateral views of the chest were obtained. COMPARISON: Chest single view 08/07/2021 FINDINGS: There is no pneumonia, pleural effusion, or pneumothorax. The heart size is normal. Surgical clips in the right upper quadrant are likely from cholecystectomy. IMPRESSION: 1. No acute cardiopulmonary disease. Reviewed, dictated and finalized at location A. [employer] Please be advised this is a medical document. It is intended for [id number] communication. It is written in medical language and may contain unfamiliar abbreviations or verbiage. Medical documents are intended to carry relevant information, facts as evident, and the clinical opinion of the practitioner at the time of the encounter. This report may have been done utilizing a voice recognition system. Attempts have been made to correct errors. However, there may be uncorrected grammatical, spelling, and recognition errors present. The file time of this note does not necessarily represent the time of service. Dictated By: Feliciano Hartman MD 06/06/24 1205 Signed By: <Electronically signed by Feliciano Hartman MD in OV> 06/06/24 1206 Critical Care Time Critical Care Time Critical Care Time: No Discharge Plan Discharge Clinical Impression: Viral illness Patient Disposition: Home, Self-Care Condition: Stable Instructions: Viral Syndrome (ED) Additional Instructions: Viral illness may last between 7-21 days; antibiotics do not cure viral illness and are NOT recommended at this time. Also, recommend symptomatic treatment includes: rest, fluids, and increase humidity of the air at home. Recommend Acetaminophen as directed on the bottle to reduce fever, pain, headache. Please schedule a follow-up visit with your personal physician for further ev aluation and treatment within 3-5days. If your symptoms persist, change or worsen significantly before you can contact your personal physician then please, without delay, go to the emergency department for further evaluation. Patient Language: Slovak Prescriptions: No Action ibuprofen 800 mg tablet 800 mg PO TID PRN (Reason: pain) Qty: 15 0RF Wegovy 0.25 mg/0.5 mL pen injector 0.25 mg SUBCUT WEEKLY buspirone 5 mg tablet 5 mg PO BID bupropion HCl 300 mg tablet extended release 24 hr 300 mg PO DAILY methylphenidate HCl [Concerta] 36 mg tablet extended release 24hr 36 mg PO ONCE Follow-up/Referrals: PHYSICIAN,SENIOR PRODUCT DEVELOPMENT ENGINEER [Primary Care Provider] - Stand Alone Forms: Work/School Release IP Time of Disposition: 12:12
[2024-06-06 11:43] VITALS: BP 127/81; PULSE 77; RESP 16; TEMP 36.7; O2SAT 98
[2024-06-06 11:56] LABS: EDCOVIDSCREEN Negative (Negative); EDINFLUASCREEN Negative (Negative); EDINFLUBSCREEN Negative (Negative)
== END 2024-06-06 12:19 | disposition home or self-care (01) ==
PROVIDERS: Emergency Provider Nurse Practitioner
DX: B34.9 Viral infection, unspecified (principal); Z20.822 Contact with and (suspected) exposure to COVID-19; F12.90 Cannabis use, unspecified, uncomplicated; F32.A Depression, unspecified; Z86.711 Personal history of pulmonary embolism; Z90.89 Acquired absence of other organs
CPT/HCPCS: 71046; 87426; 87804; 99213; G0463